=== PATIENT | female | born 1985 ===

== ENCOUNTER 2021-07-25 07:33 | Inpatient (IN) ==
[2021-07-25] MEDS ORDERED: OXYTOCIN 30 UNITS/500 ML BAG IV PRN (07:57)
[2021-07-25] MEDS ORDERED: LACTATED RINGER'S 1,000 ML IV PRN (07:57)
--- NOTE | 2021-07-25 08:11 | History & Physical Report ---
Date of Service July 25, 2021 Assessment & Plan (1) premature rupture of membranes: Plan: Expectant management (2) History of mandibular surgery: (3) History of dilation and curettage: (4) delivery delivered: (5) Hx of cholecystectomy: (6) History of appendectomy: (7) Migraine: (8) Kidney stones: (9) DVT (deep vein thrombosis) in : (10) Factor V Leiden: (11) Crohn's disease: Plan: Expectant management History of Present Illness Chief Complaint: leakage of fluid Primary Care Provider: Ilia Castellon MD 36 F [id number] at 20 weeks gestation woke up this AM with leakage of fluid before shower. She went to work this AM and continued to have leakage of fluid and was brought here. She is being seen by Doctor in [place]. Has 2 prior C- sections. EDC / per patient. Was planning a repeat . Patient History Social History Preferred Language: [place]an Communication Ability: Effective Service Car Operator Required: No Beliefs That Will Affect Care: None Current Living Situation: Family Current Living Situation Comment: FOB, 2 kids and herself Other Information That Helps Us Care for You: No Assistive Devices: None OB History #1 for placenta previa #2 for genetic anomaly LICSW History Factor V Leiden on Lovenox Review of Systems All systems reviewed & are unremarkable except as noted in HPI & below Physical Exam Constitutional: WD/WN, vitals as above Eyes: PERRL, conjunctivae normal, anicteric sclerae Respiratory: normal respiratory effort, lungs clear to auscultation Cardiovascular: RRR, no murmur, no edema Skin: no rashes, warm and dry Neurologic: patellar DTR's 2+ bilat, sensation intact Psychiatric: A+Ox3, euthymic affect Genitourinary: no vaginal lesions, no adnexal mass normal external appearance Manual OB Exam: + cervical dilation fingertip, + cervical effacement 50%, + station high and + amniotic fluid (Sterile speculum done with copious light meconium in vagina) meconium and nitrazine positive OB Exam Monitor Tracing: + external FHT monitor used and + external uterine monitor used Code Status & VTE Plan VTE Prophylaxis Plan VTE Prophylaxis will be ordered: Yes Monitoring External Monitor positive FHT Tocodynamometer uterine irritability noted
[2021-07-25 08:56] LABS: Hematocrit (blood only) 36.3 % (37-47); Hemoglobin 12.1 g/dL (12.0-16.0); Mean Corpuscular Hemoglobin 30.3 pg (25-34); Mean Corpuscular Hgb Conc 33.3 g/dL (32-36); Mean Corpuscular Volume 90.8 fL (80-100); Mean Platelet Volume 10.1 fL (7.4-10.4); Platelet Count 232 K/uL (130-400); RDW Coefficient of Variation 13.4 % (11.5-14.5); RDW Standard Deviation 44.8 fL (36.4-46.3); White Blood Count 16.57 K/uL (4.8-10.8)
--- NOTE | 2021-07-25 10:10 | Progress Note ---
Date of Service July 25, 2021 Assessment & Plan Admission and Anticipated Discharge Date Admission Date: July 25, 2021 Subjective I spoke to patient who is insistent regarding transfer to [facility] where she has received care. I also informed her that at this gestational age we would only do expectant management since fetus is pre-viable. She is aware of this and is willing to accept risk of transfer. I spoke to transfer center in [place] and Dr. Dominguez is accepting physician. She will be going by air transportation.
--- NOTE | 2021-08-01 10:30 | Discharge Summary (DS) ---
DATE OF ADMISSION: 07/25/2021 DATE OF DISCHARGE: 07/25/2021 CLINICAL HISTORY AND HOSPITAL COURSE: The patient is a 36-year-old female, para 0-2-2-2, at 20 weeks who presents this morning from work with leakage of fluid. After taking a shower, she went to work and was brought here by a coworker. She was evaluated on labor and delivery. She had a sterile spec ulum exam, which revealed grossly ruptured fluid. The patient has had 2 prior C-sections. She had h er care by Dr. Sprinegr in [place] at [facility] and the patient requested to be transferred to [facility]. I informed the patient that this is not routine considering that this is a nonviable gestatio n with probably little hope for survival at a gestational age of 20 weeks. The patient was transferr ed via helicopter in stable condition. She was not actively blake. The baby was viable at the point of transfer. CONDITION ON DISCHARGE: Stable. Job ID: [id number]
== END 2021-07-25 11:00 | disposition short-term general hospital (02) | DRG 832 ==
LOC: OPB 07:33 → 4S1 07:38